=== PATIENT | female | born 1940 | race Caucasian/White ===

== ENCOUNTER → 2016-10-12 | Outpatient (CLI) | payer OTHER, MEDICARE | LOC: BMCIMAGING 13:44 | PROVIDERS: ATTEND Internal Medicine | DX: S82.092A Other fracture of left patella, initial encounter for closed fracture (principal) ==

== ENCOUNTER → 2016-11-20 | Outpatient (CLI) | payer OTHER, MEDICARE | LOC: FIMAGING 08:38 | PROVIDERS: ATTEND Internal Medicine | DX: N28.89 Other specified disorders of kidney and ureter (principal); K80.20 Calculus of gallbladder without cholecystitis without obstruction; K62.1 Rectal polyp; M85.80 Other specified disorders of bone density and structure, unspecified site; R10.12 Left upper quadrant pain | CPT/HCPCS: 76700-PO; 80053-PO; 80061-PO; 81003-PO; 81015-PO; 84443-PO; 85025-PO ==

== ENCOUNTER → 2017-02-17 | Outpatient (CLI) | payer OTHER, MEDICARE | LOC: FIMAGING 14:44 | PROVIDERS: ATTEND Internal Medicine Hematology & Oncology | DX: Z13.820 Encounter for screening for osteoporosis (principal); M85.80 Other specified disorders of bone density and structure, unspecified site; R29.890 Loss of height; Z78.0 Asymptomatic menopausal state; Z82.62 Family history of osteoporosis ==

== ENCOUNTER → 2017-12-16 | Outpatient (CLI) | payer OTHER, MEDICARE | LOC: BMCIMAGING 15:41 | PROVIDERS: ATTEND Internal Medicine | DX: J15.9 Unspecified bacterial pneumonia (principal) ==

== ENCOUNTER → 2018-02-17 | Outpatient (CLI) | payer OTHER, MEDICARE | LOC: FLAB 16:08 | PROVIDERS: ATTEND Internal Medicine | DX: Q67.6 Pectus excavatum (principal) ==